=== PATIENT | male | born 1970 | race Caucasian/White ===

== ENCOUNTER 2023-06-19 19:01 | Emergency (ER) | payer OTHER, SELFPAY ==
[2023-06-19 19:03] VITALS: BP 134/84
[2023-06-19] MEDS: FLEXERIL 10 MG PO (19:53)
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
== END 2023-06-19 21:00 | disposition home or self-care (01) ==
LOC: EMR 19:01
PROVIDERS: EMERGENCY PHYSICIAN Emergency Medicine; FAMILY PHYSICIAN Family Medicine
DX: S16.1XXA Strain of muscle, fascia and tendon at neck level, initial encounter (principal); S39.012A Strain of muscle, fascia and tendon of lower back, initial encounter; V43.52XA Car driver injured in collision with other type car in traffic accident, initial encounter; Y99.0 Civilian activity done for income or pay
CPT/HCPCS: 99284; 72125